=== PATIENT | male | born 1950 | race Hispanic/Latino ===

== ENCOUNTER 2018-01-07 07:18 | Day surgery (SDC) | payer OTHER ==
[~2018-01-07] VITALS: Ht 180.3 cm; Wt 105.9 kg
[~2018-01-07 07:18] MED LIST: LEVO125T11 PO; LOVA20TA3 PO; MULT-603 PO
[2018-01-07 07:32] VITALS: BP 121/81
[2018-01-07] MEDS: SODIUM CHLORIDE 0.9% 1000ML 1,000 ML IV ONE (08:29)
[2018-01-07] MEDS ORDERED: PROPOFOL 10 MG/ML 20ML VIAL IV ONE (09:03)
[2018-01-07 09:32] VITALS: BP 91/41
== END 2018-01-07 10:00 | disposition home or self-care (01) ==
LOC: DAH 07:18 → ENDO 07:18
PROVIDERS: ATTEND Internal Medicine Gastroenterology
DX: D12.0 Benign neoplasm of cecum (principal); K63.5 Polyp of colon; D12.3 Benign neoplasm of transverse colon; Z80.0 Family history of malignant neoplasm of digestive organs; E78.5 Hyperlipidemia, unspecified; E03.9 Hypothyroidism, unspecified; Z68.33 Body mass index [BMI] 33.0-33.9, adult; Z79.899 Other long term (current) drug therapy; Z98.890 Other specified postprocedural states
CPT/HCPCS: 88305; A4606; J2704; J7030

== ENCOUNTER 2020-02-03 13:47 | Emergency (ER) | payer OTHER ==
[2020-02-03] MEDS ORDERED: OXYMETAZOLINE HCL SPRAY 15 ML BOTTLE ONE (13:48)
== END 2020-02-03 15:38 | disposition home or self-care (01) ==
LOC: EDH 13:47
DX: R04.0 Epistaxis (principal); R03.0 Elevated blood-pressure reading, without diagnosis of hypertension
CPT/HCPCS: 30901

== ENCOUNTER 2020-02-06 10:24 | Emergency (ER) | payer OTHER ==
[2020-02-06] MEDS ORDERED: OXYMETAZOLINE HCL SPRAY 15 ML BOTTLE ONE (10:46)
== END 2020-02-06 11:51 | disposition home or self-care (01) ==
LOC: EDH 10:24
DX: R04.0 Epistaxis (principal)